=== PATIENT | female | born 1975 | race Caucasian/White ===

== ENCOUNTER 2020-08-28 10:34 | Emergency (ER) | payer OTHER, SELFPAY ==
[2020-08-28 10:42] VITALS: BP 165/97; PULSE 114; RESP 18; TEMP 37.1; O2SAT 97; BMI 39.5
[2020-08-28 10:47] VITALS: O2SAT 97
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
[2020-08-28 11:11] VITALS: BP 138/95; PULSE 105; RESP 18; O2SAT 96
== END 2020-08-28 11:48 | disposition home or self-care (01) ==
PROVIDERS: Emergency Provider Family Medicine
DX: S50.12XA Contusion of left forearm, initial encounter (principal); Y04.2XXA Assault by strike against or bumped into by another person, initial encounter; Y92.239 Unspecified place in hospital as the place of occurrence of the external cause; Y99.0 Civilian activity done for income or pay
CPT/HCPCS: 73090; 99282

== ENCOUNTER 2022-08-18 06:38 | Day surgery (SDC) | payer OTHER, SELFPAY ==
[2022-08-16 12:10] VITALS: BMI 37.1
[2022-08-18 07:03] VITALS: BP 138/85; PULSE 90; RESP 18; TEMP 36.1; O2SAT 99
[2022-08-18] MEDS: sodium chloride 0.9% 1,000 ML 30 ML IV (07:10)
--- NOTE | 2022-08-18 08:19 | ANES.PREANE2 ---
Pre-Anesthetic Assessment Height/Weight: Height 1.68 m Weight 104.326 kg Temp Pulse Resp BP Pulse Ox O2 Del Method 97 F L 90 18 138/85 99 Room Air 08/18/22 07:03 08/18/22 07:03 08/18/22 07:03 08/18/22 07:03 08/18/22 07:03 08/18/22 07:03 Preop Diagnosis: GERD Operation Date: 08/18/22 08:30 Proposed Procedures p [id number] EGD K21.9(Not Applicable) - Mik Hopkins DO Familial anesthetic complications: none Was Beta Sandhya taken within 24 hours: N/A Was Clonidine taken within 24 hours: N/A Last intake: Intake Last Liquid Date 08/17/22 Last Liquid Time 22:00 Last Solid Date 08/17/22 Last Solid Time 19:00 Social Tobacco and No alcohol 0.5 pack(s) per day 16 pack years Exam alert, oriented x 3, clear to auscultation bilaterally and regular rate & rhythm Airway Submandibular: within normal limits Cervical ROM: within normal limits Mallampati: Class I Dentition: full Pulmonary Sleep Apnea CV/HEM Hypertension and Murmur None reported Hepatic None reported GI Gastroesophageal Reflux Disease and Hiatal Hernia Metabolic Morbid Ob[place] [facility] [place] None reported Neuropsych Anxiety Anesthetic Plan ASA status: 3 Anesthesia: MAC Risk of > 500 ml blood loss (7ml/kg in children): No Medications/Allergies Home Medications Medication Instructions Recorded Confirmed Last Taken Type furosemide 20 mg tablet 20 mg PO DAILY 07/26/22 08/18/22 08/17/22 History lisinopril 10 mg tablet 10 mg PO DAILY 07/26/22 08/18/22 08/18/22 History potassium chloride 20 mEq 20 meq PO DAILY 07/26/22 08/18/22 08/17/22 History tablet,extended release esomeprazole magnesium 20 mg 20 mg PO DAILY 08/16/22 08/18/22 08/17/22 History capsule,delayed release (Nexium) ibuprofen 200 mg tablet 200 mg PO Q6H PRN Pain 08/16/22 08/18/22 08/17/22 History Allergies Allergy/AdvReac Type Severity Reaction Status Date / Time amoxicillin Allergy ADR-Nausea Verified 07/26/22 10:57 latex Allergy ALGY-Rash Verified 07/26/22 10:57 Current Medications Generic Name Dose Route Start Last Admin Trade Name Freq PRN Reason Stop Dose Admin Sodium Chloride 1,000 mls @ 30 mls/hr 08/18/22 06:45 08/18/22 07:10 Sodium Chloride 0.9% IV 08/19/22 06:44 30 mls/hr .Q24H NATE Administration PFSH Anesthesia Surgical History History of ankle surgery History of laparoscopic cholecystectomy Data Anesthesia Cardiac Studies: No Data to Display
--- NOTE | 2022-08-18 08:34 | W.PM.OPSUD ---
Surgery/Procedure H&P Update DATE OF PROCEDURE: August 18, 2022 DATE H&P PERFORMED: 07/26/22 H&P UPDATE INFORMATION: I have reviewed H&P completed within last 30 days, I have examined patient prior to procedure and No changes to prior documentation PREOP DIAGNOSIS: GERD PLANNED PROCEDURE: Operation Date: 08/18/22 08:30 Proposed Procedures p [id number] EGD K21.9(Not Applicable) - Mik Hopkins, DO
[2022-08-18 08:56] VITALS: BP 97/67; PULSE 91; RESP 12; TEMP 36.1; O2SAT 93
[2022-08-18 09:09] VITALS: BP 105/74; PULSE 74; RESP 18; O2SAT 97
--- NOTE | 2022-08-18 14:09 | ANE.PACU2 ---
Inpatient post-anesthesia follow up: Airway intact: Yes Vital signs: Temperature 97 F Pulse Rate 74 Respiratory Rate 18 Blood Pressure 105/74 Pulse Oximetry 97 Oxygen Delivery Me thod Room Air Oxygen Flow Rate Fraction of Inspir ed Oxygen Hydration adequate: Yes Nausea and vomiting: No Pain level: 2 Mental status: Baseline
== END 2022-08-18 09:23 | disposition home or self-care (01) ==
PROVIDERS: PCP Nurse Practitioner Family; Visit Provider Surgery
PROC: 0DJ08ZZ Inspection of Upper Intestinal Tract, Via Natural or Artificial Opening Endoscopic (ICD-10-PCS; CPT 43235; principal; 2022-08-18 08:30)
DX: K21.9 Gastro-esophageal reflux disease without esophagitis (principal); Z88.0 Allergy status to penicillin
CPT/HCPCS: 43239; 88305; J2704; J7030

== ENCOUNTER 2023-03-09 10:06 | Outpatient (CLI) | payer OTHER, SELFPAY ==
[2023-03-09 10:44] LABS: Alanine Aminotransferase 12 U/L (0-33); Albumin Level 4.1 g/dL (3.5-5.2); Alkaline Phosphatase 77 U/L (35-105); Anion Gap 13.5 (5-19); Aspartate Amino Transferase 12 U/L (0-32); Blood Urea Nitrogen 9 mg/dL (6-20); Calcium 9.1 mg/dL (8.5-10.5); Carbon Dioxide 26 mmol/L (22-29); Chloride 104 mmol/L (98-107); Cholesterol 145 mg/dL (0-200); Globulin 2.7 g/dL (1.3-4.6); Glomerular Filtration Rate 89.3 mL/min (90-130); Glucose 91 mg/dL (65-115); HDL Cholesterol 44 mg/dL (60-100); LDL Cholesterol Calculated 65 mg/dL (50-129); LDL HDL Ratio 1.48 RATIO (0.00-3.22); Osmolality Calculated 286 mOsm/kg (285-295); Potassium 4.5 mmol/L (3.5-5.1); Sodium 139 mmol/L (136-145); Total Bilirubin 0.2 mg/dL (0.15-1.2); Total Protein 6.8 g/dL (6.6-8.7); Triglycerides 182 mg/dL (0-150)
--- NOTE | 2023-03-18 17:29 | W.ED.GENADLT ---
HPI - General Adult History of Present Illness: 47-year-old female with complaints of dysuria urgency and frequency times several days. Patient seen on 03/16/2023 [facility] ED PFSH: Surgical History History of ankle surgery History of laparoscopic cholecystectomy MDM - General Adult Medical Decision Making Cystitis treated with Bactrim DS 1 p.o. twice daily. Patient frequently has yeast infections associated with antibiotics gave 2 tablets of Diflucan to use q. OD. Lab Data 03/09/23 10:18 Laboratory Results Sodium 139 mmol/L (136-145) 03/09/23 10:18 Potassium 4.5 mmol/L (3.5-5.1) 03/09/23 10:18 Chloride 104 mmol/L (98-107) 03/09/23 10:18 Carbon Dioxide 26 mmol/L (22-29) 03/09/23 10:18 Anion Gap 13.5 (5-19) 03/09/23 10:18 BUN 9 mg/dL (6-20) 03/09/23 10:18 Creatinine 0.7 mg/dL (0.5-0.9) 03/09/23 10:18 GFR Calculation 89.3 mL/min (90-130) L 03/09/23 10:18 Glucose 91 mg/dL (65-115) 03/09/23 10:18 Calculated Osmolality 286 mOsm/kg (285-295) 03/09/23 10:18 Calcium 9.1 mg/dL (8.5-10.5) 03/09/23 10:18 Total Bilirubin 0.2 mg/dL (0.15-1.2) 03/09/23 10:18 AST 12 U/L (0-32) 03/09/23 10:18 ALT 12 U/L (0-33) 03/09/23 10:18 Alkaline Phosphatase 77 U/L (35-105) 03/09/23 10:18 Total Protein 6.8 g/dL (6.6-8.7) 03/09/23 10:18 Albumin 4.1 g/dL (3.5-5.2) 03/09/23 10:18 Globulin 2.7 g/dL (1.3-4.6) 03/09/23 10:18 Triglycerides 182 mg/dL (0-150) H 03/09/23 10:18 Cholesterol 145 mg/dL (0-200) 03/09/23 10:18 LDL Cholesterol, Calc 65 mg/dL (50-129) 03/09/23 10:18 HDL Cholesterol 44 mg/dL (60-100) L 03/09/23 10:18 LDL/HDL Ratio 1.48 RATIO (0.00-3.22) 03/09/23 10:18 Cholesterol/HDL Ratio 3.30 mg/dL (0.0-4.40) 03/09/23 10:18 No radiology studies performed this visit Discharge Plan Discharge Patient Disposition: Home Prescriptions: No Action potassium chloride 20 mEq tablet extended release 20 meq PO DAILY furosemide 20 mg tablet 20 mg PO DAILY lisinopril 10 mg tablet 10 mg PO DAILY ibuprofen 200 mg Tablet 200 mg PO Q6H PRN (Reason: Pain) Hold Instructions: Resume on 08/21/22. esomeprazole magnesium [Nexium] 20 mg Capsule,Delayed Release(Dr/Ec) 20 mg PO DAILY Discharge Date/Time: 03/09/23 10:07 Coding Level of Care Code ED Tube Room Supervisor for Nikita Dumont
== END 2023-03-09 10:07 | disposition home or self-care (01) ==
LOC: LAB 10:10
PROVIDERS: PCP Nurse Practitioner Family; Visit Provider Nurse Practitioner Family
DX: I10 Essential (primary) hypertension (principal)
CPT/HCPCS: 80053; 80061

== ENCOUNTER → 2024-09-20 07:46 | Outpatient (BNVA) | payer SELFPAY | PROVIDERS: PCP Nurse Practitioner Family; Visit Provider Registered Nurse | DX: N89.8 Other specified noninflammatory disorders of vagina (principal); Z11.3 Encounter for screening for infections with a predominantly sexual mode of transmission | CPT/HCPCS: 81000; 87070; 87086; 87205; 87491; 87591 ==

== ENCOUNTER → 2024-10-01 11:20 | Outpatient (BNVA) | payer SELFPAY | PROVIDERS: PCP Registered Nurse; Visit Provider Registered Nurse | DX: N39.0 Urinary tract infection, site not specified (principal) | CPT/HCPCS: 81000 ==